=== PATIENT | female | born 1980 | race Caucasian/White ===

== ENCOUNTER 2018-02-23 03:45 | Inpatient (IN) | payer OTHER ==
[2018-02-23] MEDS ORDERED: NACL 0.9% 3 ML SYG IV (05:00)
[2018-02-23] MEDS ORDERED: HYDROCODONE/APAP (5/325) TAB PO (05:00)
[2018-02-23] MEDS ORDERED: ACETAMINOPHEN 325 MG TAB PO (05:00)
[2018-02-23] MEDS ORDERED: ONDANSETRON 4 MG INJ IV (05:00)
[2018-02-23 05:42] LABS: ADD MAN DIFF? NO
[2018-02-23] MEDS: morphine SULFATE/PF (2 MG/2 ML) SYG IV ×3 (05:49→21:31)
[2018-02-23] MEDS: CEFTRIAXONE 1 GM/50 ML (PMX) 50 ML IVPB (05:50)
[2018-02-23] MEDS: KETOROLAC 30 MG INJ IV (05:50)
[2018-02-23 05:52] LABS: BASOPHILS % 0.3 % (0.0-2.0); HEMATOCRIT 33.7 % (37.0-47.0); LYMPHOCYTES # 0.7 10^3/ul (0.8-2.9); LYMPHOCYTES % 11.8 % (15.0-51.0); MEAN CORPUSCULAR HEMOGLOBIN 32.4 pg (29.0-33.0); MEAN CORPUSCULAR HGB CONC 32.6 g/dl (32.0-37.0); MEAN CORPUSCULAR VOLUME 99.4 fl (82.0-101.0); MEAN PLATELET VOLUME 10.1 fl (7.4-10.4); MONOCYTE # 0.1 10^3/ul (0.3-0.9); MONOCYTES % 1.4 % (0.0-11.0); NEUTROPHILS % 86.2 % (39.0-77.0); PLATELET COUNT 285 10^3/UL (140-415); RED BLOOD COUNT 3.39 10^6/ul (4.20-5.40); RED CELL DISTRIBUTION WIDTH 11.6 % (11.5-14.5)
[2018-02-23 05:52] LABS: WHITE BLOOD COUNT 5.8 10^3/ul (4.8-10.8)
[2018-02-23 06:17] LABS: ALANINE AMINOTRANSFERASE 39 IU/L (13-69); ALBUMIN 3.9 g/dl (3.3-4.9); ALBUMIN/GLOBULIN RATIO 1.44; ALKALINE PHOSPHATASE 66 IU/L (42-121); ANION GAP 11 (5-13); ASPARTATE AMINO TRANSFERASE 26 IU/L (15-46); BILIRUBIN,INDIRECT 0.1 mg/dl (0-1.1); BILIRUBIN,TOTAL 0.1 mg/dl (0.2-1.3); BLOOD UREA NITROGEN 14 mg/dl (7-20); CALCIUM 9.1 mg/dl (8.4-10.2); CARBON DIOXIDE 26 mmol/L (21-31); CHLORIDE 103 mmol/L (97-110); CHOLESTEROL 153 mg/dl (100-200); Estimated GFR > 60 mL/min (>60); GLUCOSE 138 mg/dl (70-220); HDL CHOLESTEROL 50 mg/dl (34-82); LDL CHOLESTEROL,CALCULATED 95 mg/dl; POTASSIUM 4.4 mmol/L (3.5-5.1); SODIUM 140 mmol/L (135-144); TOTAL PROTEIN 6.6 g/dl (6.1-8.1); TRIGLYCERIDES 42 mg/dl (0-149)
[2018-02-23 06:47] LABS: THYROID STIMULATING HORMONE 0.772 MIU/L (0.465-4.680)
[2018-02-23 07:24] LABS: ERYTHROCYTE SEDIMENTATION RATE 9 mm/Hr (0-20)
[2018-02-23] MEDS: DOCUSATE SODIUM 100 MG CAP PO (08:15)
[2018-02-23 08:20] LABS: HEMOGLOBIN A1C 5.2 % (0-5.9)
[2018-02-23] MEDS: BACLOFEN 10 MG TAB PO ×3 (11:50→20:33)
[2018-02-24] MEDS: morphine SULFATE/PF (2 MG/2 ML) SYG IV ×3 (01:37→12:45)
[2018-02-24] MEDS: KETOROLAC 30 MG INJ IV ×2 (04:42→23:08)
[2018-02-24] MEDS: CEFTRIAXONE 1 GM/50 ML (PMX) 50 ML IVPB (04:42)
[2018-02-24] MEDS: BACLOFEN 10 MG TAB PO ×3 (08:07→20:21)
[2018-02-24] MEDS: BISACODYL (EC) 5 MG TAB PO (12:45)
[2018-02-24] MEDS: DOCUSATE SODIUM 100 MG CAP PO (12:45)
[2018-02-25] MEDS: morphine SULFATE/PF (2 MG/2 ML) SYG IV ×4 (03:25→22:12)
[2018-02-25] MEDS: CEFTRIAXONE 1 GM/50 ML (PMX) 50 ML IVPB (04:45)
[2018-02-25] MEDS ORDERED: CIPROFLOXACIN 500 MG TAB PO (09:00)
[2018-02-25] MEDS: CIPROFLOXACIN 500 MG TAB PO (09:21)
[2018-02-25] MEDS: BACLOFEN 10 MG TAB PO ×3 (09:21→20:46)
[2018-02-25] MEDS: NAPROXEN 500 MG TAB PO ×2 (12:34→20:46)
[2018-02-26] MEDS: LORAZEPAM 4 MG/ML VIAL IV (01:43)
[2018-02-26] MEDS: CIPROFLOXACIN 500 MG TAB PO (05:48)
[2018-02-26] MEDS: BACLOFEN 10 MG TAB PO ×3 (09:00→21:56)
[2018-02-26] MEDS: NAPROXEN 500 MG TAB PO ×3 (09:00→21:56)
[2018-02-26] MEDS: HYDROCODONE/APAP (5/325) TAB PO (16:06)
[2018-02-26] MEDS: morphine SULFATE/PF (2 MG/2 ML) SYG IV ×2 (16:44→21:56)
[2018-02-27] MEDS: LORAZEPAM 1 MG TAB PO (03:28)
[2018-02-27] MEDS: CIPROFLOXACIN 500 MG TAB PO (06:08)
[2018-02-27] MEDS: NAPROXEN 500 MG TAB PO (08:10)
[2018-02-27] MEDS: BACLOFEN 10 MG TAB PO ×2 (08:11→13:30)
[2018-02-27] MEDS: HYDROCODONE/APAP (5/325) TAB PO ×2 (08:11→13:30)
== END 2018-02-27 16:15 | disposition home or self-care (01) | DRG 552 ==
LOC: 2NE 03:45
DX: M51.17 Intervertebral disc disorders with radiculopathy, lumbosacral region (principal); N39.0 Urinary tract infection, site not specified; M43.17 Spondylolisthesis, lumbosacral region; B96.20 Unspecified Escherichia coli [E. coli] as the cause of diseases classified elsewhere
CPT/HCPCS: 72148; 72195; 80053; 80061; 83036; 84443; 85025; 85651; 87086; 97110; 97116; 97162; 97530

== ENCOUNTER 2018-03-03 21:37 | Observation (INO) | payer OTHER ==
[2018-03-04] MEDS: morphine 4 MG/ML VIAL IV (00:51)
[2018-03-04] MEDS: ONDANSETRON 4 MG INJ IV (00:51)
[2018-03-04 01:29] LABS: ADD UMIC YES; UR ASCORBIC ACID NEGATIVE (NEGATIVE); UR BACTERIA FEW /HPF (NONE SEEN); UR BILIRUBIN (Dip) NEGATIVE (NEGATIVE); UR BLOOD (Dip) 2+ mg/dL (NEGATIVE); UR CLARITY SLIGHTLY CLOUDY (CLEAR); UR COLOR YELLOW (YELLOW); UR GLUCOSE (Dip) NEGATIVE (NEGATIVE); UR KETONES (Dip) NEGATIVE (NEGATIVE); UR LEUKOCYTE ESTERASE (Dip) NEGATIVE Leu/ul (NEGATIVE); UR NITRITE (Dip) NEGATIVE (NEGATIVE); UR RBC 1 /HPF (0-5); UR SPECIFIC GRAVITY (Dip) 1.011 (1.003-1.030); UR SQUAMOUS EPITHELIAL CELL FEW /HPF (FEW); UR TOTAL PROTEIN (Dip) NEGATIVE (NEGATIVE); UR UROBILINOGEN (Dip) NEGATIVE (NEGATIVE); UR WBC 4 /HPF (0-5)
[2018-03-04] MEDS: POLYETHYLENE GLYCOL 17 GM PACKET PO (02:26)
[2018-03-04] MEDS: HYDROmorphONE 2 MG/ML SYG IV (02:55)
[2018-03-04] MEDS ORDERED: ACETAMINOPHEN 325 MG TAB PO ×2 (04:30→06:00)
[2018-03-04] MEDS ORDERED: ONDANSETRON 4 MG INJ IV ×3 (04:30→06:00)
[2018-03-04] MEDS ORDERED: NACL 0.9% 3 ML SYG IV (06:00)
[2018-03-04] MEDS ORDERED: HYDROCODONE/APAP (5/325) TAB PO (06:00)
[2018-03-04] MEDS ORDERED: ALBUTEROL/IPRATROPIUM (NEB) 3 ML AMP HHN (06:00)
[2018-03-04] MEDS ORDERED: HYDROmorphONE 0.5 MG/0.5 ML SYG IV (06:00)
[2018-03-04] MEDS: MAGNESIUM HYDROXIDE 30ML CUP PO (09:55)
[2018-03-04] MEDS: HEPARIN 5,000 UNIT/1 ML VIAL SC ×2 (10:04→21:00)
[2018-03-04] MEDS: BACLOFEN 10 MG TAB PO ×2 (10:11→13:30)
[2018-03-04] MEDS: IBUPROFEN 800 MG TAB PO ×2 (13:33→18:20)
[2018-03-04] MEDS: SENNA/DOCUSATE NA (8.6MG/50MG) TAB PO (21:56)
[2018-03-05] MEDS: BACLOFEN 10 MG TAB PO ×2 (03:29→20:13)
[2018-03-05] MEDS: IBUPROFEN 800 MG TAB PO ×3 (04:39→21:29)
[2018-03-05 05:01] LABS: ADD MAN DIFF? NO
[2018-03-05 05:09] LABS: BASOPHILS % 0.3 % (0.0-2.0); EOSINOPHILS # 0.1 10^3/ul (0.0-0.5); EOSINOPHILS % 2.2 % (0.0-7.0); LYMPHOCYTES # 2.2 10^3/ul (0.8-2.9); LYMPHOCYTES % 36.2 % (15.0-51.0); MEAN CORPUSCULAR HEMOGLOBIN 33.3 pg (29.0-33.0); MEAN CORPUSCULAR HGB CONC 34.4 g/dl (32.0-37.0); MEAN PLATELET VOLUME 10.2 fl (7.4-10.4); MONOCYTE # 0.6 10^3/ul (0.3-0.9); MONOCYTES % 9.2 % (0.0-11.0); NEUTROPHIL # 3.1 10^3/ul (1.6-7.5); NEUTROPHILS % 51.9 % (39.0-77.0); PLATELET COUNT 274 10^3/UL (140-415); RED CELL DISTRIBUTION WIDTH 11.7 % (11.5-14.5)
[2018-03-05 05:36] LABS: ALANINE AMINOTRANSFERASE 26 IU/L (13-69); ALBUMIN 3.5 g/dl (3.3-4.9); ALBUMIN/GLOBULIN RATIO 1.16; ALKALINE PHOSPHATASE 49 IU/L (42-121); ANION GAP 8 (5-13); ASPARTATE AMINO TRANSFERASE 22 IU/L (15-46); BILIRUBIN,INDIRECT 0.4 mg/dl (0-1.1); BILIRUBIN,TOTAL 0.4 mg/dl (0.2-1.3); BLOOD UREA NITROGEN 13 mg/dl (7-20); CALCIUM 9.1 mg/dl (8.4-10.2); CARBON DIOXIDE 30 mmol/L (21-31); CHLORIDE 101 mmol/L (97-110); CREATININE 0.63 mg/dl (0.44-1.00); Estimated GFR > 60 mL/min (>60); GLUCOSE 106 mg/dl (70-220); MAGNESIUM 1.9 mg/dl (1.7-2.5); PHOSPHORUS 3.3 mg/dl (2.5-4.9); POTASSIUM 3.8 mmol/L (3.5-5.1); SODIUM 139 mmol/L (135-144); TOTAL PROTEIN 6.5 g/dl (6.1-8.1)
[2018-03-05] MEDS: BISACODYL (EC) 5 MG TAB PO (08:49)
[2018-03-05] MEDS: HEPARIN 5,000 UNIT/1 ML VIAL SC (08:49)
[2018-03-05] MEDS: BISACODYL 10 MG SUPP PR (11:06)
[2018-03-05] MEDS: SENNA/DOCUSATE NA (8.6MG/50MG) TAB PO (20:14)
[2018-03-05] MEDS: LORAZEPAM 1 MG TAB PO (21:30)
[2018-03-06] MEDS: IBUPROFEN 800 MG TAB PO ×3 (03:22→17:03)
[2018-03-06] MEDS: BACLOFEN 10 MG TAB PO (09:01)
[2018-03-06] MEDS: ENOXAPARIN 40 MG/0.4 ML SYG SC (09:04)
[2018-03-06] MEDS: HYDROCODONE/APAP (5/325) TAB PO (18:18)
== END 2018-03-06 18:30 | disposition home health service (06) ==
LOC: FTE 21:37 → MS1 03-04 04:28
DX: M51.26 Other intervertebral disc displacement, lumbar region (principal); N39.0 Urinary tract infection, site not specified; K59.00 Constipation, unspecified
CPT/HCPCS: 80053; 81001; 81025; 83735; 84100; 85025; 87081; 97162